=== PATIENT | male | born 1995 | race Two or more races ===

== ENCOUNTER 2019-03-29 22:16 | Emergency (ER) | payer SELFPAY ==
[~2019-03-29] VITALS: Ht 170.2 cm; Wt 71.2 kg
[2019-03-29 22:22] VITALS: BP 144/89
--- NOTE | 2019-03-29 22:32 | NUR ---
PT BIB SELF C/O HEADACHE, FLU LIKE SYMPTOM X2 DAYS. TOOK IBUPROFEN 400MG @ 1400, RECEIVED FLU SHOT 03/27/19 TO ER BED 2 AWAITING MED EVAL
[2019-03-29] MEDS ORDERED: IBUPROFEN 600 MG TABLET PO ONE (23:37)
[2019-03-29] MEDS ORDERED: ONDANSETRON 4 MG TAB.RAPDIS ONE (23:37)
[2019-03-29] MEDS ORDERED: ACETAMINOPHEN ES 500 MG TABLET ONE (23:37)
--- NOTE | 2019-03-29 23:52 | NUR ---
Patient discharged to home in stable condition. Written and verbal after care instructions given. Patient verbalizes understanding of instruction.
[2019-03-30] MEDS ORDERED: ACETAMINOPHEN 325 MG TABLET PO ONE
[2019-03-30] MEDS ORDERED: ONDANSETRON 4 MG TAB.RAPDIS SL ONE
[2019-03-30] MEDS ORDERED: IBUPROFEN 600 MG TABLET PO ONE
== END 2019-03-29 23:53 | disposition home or self-care (01) ==
LOC: ER 22:21
DX: B34.9 Viral infection, unspecified (principal)
CPT/HCPCS: 99284; Q0162

== ENCOUNTER 2022-05-19 22:02 | Emergency (ER) | payer OTHER ==
[~2022-05-19] VITALS: Ht 170.2 cm; Wt 74.4 kg
[2022-05-19 23:09] VITALS: BP 145/75
--- NOTE | 2022-05-19 23:23 | NUR ---
URINE COLLECTED AND SENT TO LAB.
[2022-05-19] MEDS ORDERED: IBUPROFEN 400 MG TABLET ONE (23:26)
[2022-05-19] MEDS ORDERED: IBUPROFEN 400 MG TABLET PO ONE (23:30)
[2022-05-20 00:21] LABS: BILIRUBIN,URINE NEGATIVE (NEGATIVE); COLOR,URINE YELLOW (YELLOW); LEUKOCYTE ESTERASE ,URINE NEGATIVE (NEGATIVE); NITRITE, URINE NEGATIVE (NEGATIVE); PROTEIN,URINE NEGATIVE (NEGATIVE); UGLUCOSE NEGATIVE (NEGATIVE); UROBILINOGEN,URINE 0.2 EU/dL (0.2)
--- NOTE | 2022-05-20 02:47 | NUR ---
Patient discharged to home in stable condition. Written and verbal after care instructions given. Patient verbalizes understanding of instruction.
== END 2022-05-20 02:47 | disposition home or self-care (01) ==
LOC: ER 22:07
DX: R59.0 Localized enlarged lymph nodes (principal); R10.31 Right lower quadrant pain
CPT/HCPCS: 76870-TC